=== PATIENT | female | born 1950 | race Caucasian/White ===

== ENCOUNTER 2017-09-16 14:16 | Emergency (ER) | payer OTHER ==
[~2017-09-16 14:16] MED LIST: FERRIC X-150150 MG PO; FISH OIL CONC1000 M1 PO; FLUTICASONE P15.8 ML NS; IBUPROFEN600 MG PO; LANTUS100 UNITS/ SUB-Q; LORATADINE10 MG PO; MELOXICAM15 MG PO; RED YEAST RICE600 M1 PO; VITAMIN D1000 UNI1 PO
[2017-09-16] MEDS ORDERED: PRAVASTATIN SOD20 MG PO (14:35)
[2017-09-16] MEDS ORDERED: PERCOCET 5-3251 EACH PO (15:29)
[2017-09-16] MEDS ORDERED: BACLOFEN10 MG PO (15:29)
== END 2017-09-16 18:54 | disposition home or self-care (01) ==
LOC: ED 14:16
DX: S20.212A Contusion of left front wall of thorax, initial encounter (principal); Z79.4 Long term (current) use of insulin; Z79.899 Other long term (current) drug therapy; Z88.8 Allergy status to other drugs, medicaments and biological substances; V80.010A Animal-rider injured by fall from or being thrown from horse in noncollision accident, initial encounter
CPT/HCPCS: 71010; 71250; 72170; 74150; 80053; 81001; 85025; 85610; 85730; 96374; 96375; 96376; 99284; J1170; J2405

== ENCOUNTER 2019-11-24 07:46 | Emergency (ER) | payer MEDICARE ==
[~2019-11-24] VITALS: Ht 162.6 cm; Wt 90.7 kg
[~2019-11-24 07:46] MED LIST changes: +BACLOFEN10 MG PO; +PERCOCET 5-3251 EACH PO; +PRAVASTATIN SOD20 MG PO
[2019-11-24] MEDS ORDERED: PIOGLITAZONE HC30 MG PO (07:59)
[2019-11-24] MEDS ORDERED: NORCO 5-325 TA1 EACH PO (10:02)
[2019-11-24] MEDS ORDERED: ONDANSETRON ODT8 MG PO (10:05)
== END 2019-11-24 10:52 | disposition home or self-care (01) ==
LOC: ED 07:46
PROC: 2W3DX1Z Immobilization of Left Lower Arm using Splint (ICD-10-PCS; principal; 2019-11-24)
DX: S52.502A Unspecified fracture of the lower end of left radius, initial encounter for closed fracture (principal); E11.9 Type 2 diabetes mellitus without complications; Z88.8 Allergy status to other drugs, medicaments and biological substances; Z79.4 Long term (current) use of insulin; Z79.899 Other long term (current) drug therapy; W01.0XXA Fall on same level from slipping, tripping and stumbling without subsequent striking against object, initial encounter
CPT/HCPCS: 29125; 73110; 99283-25; J1170